=== PATIENT | male | born 1965 | race Caucasian/White ===

== ENCOUNTER 2018-03-25 16:21 | Emergency (ER) | payer OTHER ==
[~2018-03-25 16:21] MED LIST: AMPH20TA3 PO; HYDR-4068 PO; METO25 PO
[2018-03-25 18:43] LABS: BASOPHILS % (AUTO) 0.5 % (0.0-5.0); EOSINOPHILS % (AUTO) 6.1 % (0.0-8.0); HEMATOCRIT 25.7 % (42-54); LYMPHOCYTES % (AUTO) 19.1 % (21.0-51.0); MEAN CORPUSCULAR HEMOGLOBIN 28.5 pg (27.0-33.0); MEAN CORPUSCULAR HGB CONC 33.8 g/dL (32.0-36.0); MEAN CORPUSCULAR VOLUME 84.3 fL (79-99); NEUTROPHILS % (AUTO) 64.3 % (40.0-77.0); PLATELET COUNT (AUTO) 191 K/uL (130-400); RED BLOOD CELL COUNT(AUTO) 3.05 MIL/uL (4.50-6.20); RED CELL DISTRIBUTION WIDTH 16.3 % (11.0-15.5); WHITE BLOOD COUNT (AUTO) 2.4 K/uL (4.8-10.8)
[2018-03-25 18:54] LABS: CREATININE 0.8 mg/dL (0.5-1.5); POTASSIUM 3.5 mmol/L (3.5-5.1)
[2018-03-25 18:58] LABS: ALBUMIN 2.7 g/dL (3.5-5.0); BILIRUBIN,TOTAL 0.4 mg/dL (0.2-1.0); TOTAL PROTEIN, SERUM 6.5 g/dL (6.0-8.3)
[2018-03-25 19:16] LABS: BAND NEUTROPHILS % (MANUAL) 5 % (0-2); BASOPHILS % (MANUAL) 1 % (0-2); EOSINOPHILS % (MANUAL) 5 % (1-6); LYMPHOCYTES % (MANUAL) 15 % (22-44); MONOCYTES % (MANUAL) 8 % (2-9); REACTIVE LYMPHOCYTES 6 % (0-0); SEGMENTED NEUTROPHILS % 60 % (40-70)
[2018-03-25 19:17] LABS: MAN.DIFF COMMENT-IMPRESSION MANUAL DIFFERENTIAL
[2018-03-25 19:35] LABS: APPEARANCE,URINE Clear (CLEAR); BILIRUBIN,URINE Negative (NEGATIVE); COLOR,URINE Yellow (YELLOW); GLUCOSE, URINE (UA) Negative (NEGATIVE); KETONES,URINE Negative (NEGATIVE); LEUKOCYTE ESTERASE ,URINE Negative (NEGATIVE); NITRATE,URINE Negative (NEGATIVE); OCCULT BLOOD,URINE Negative (NEGATIVE); PROTEIN,URINE Negative (NEGATIVE); UROBILINOGEN,URINE 0.2 mg/dL (0.2-1.0)
== END 2018-03-25 20:12 | disposition home or self-care (01) ==
LOC: EDH 16:21
DX: I38 Endocarditis, valve unspecified (principal); R50.9 Fever, unspecified; M86.9 Osteomyelitis, unspecified; Z88.0 Allergy status to penicillin
CPT/HCPCS: 36415; 71046; 80053; 81003; 84153; 84154; 85025; 87040

== ENCOUNTER → 2018-06-22 | Outpatient (CLI) | payer OTHER | END | disposition home or self-care (01) | LOC: SHCH 08:41 | PROVIDERS: ATTEND Internal Medicine Cardiovascular Disease | DX: I51.7 Cardiomegaly (principal); I47.1 Supraventricular tachycardia | CPT/HCPCS: 93306 ==

== ENCOUNTER 2020-12-05 00:58 | Emergency (ER) | payer BC, OTHER ==
[~2020-12-05] VITALS: Ht 182.9 cm; Wt 108.0 kg
[2020-12-05 01:31] VITALS: BP 137/84
[2020-12-05 01:59] LABS: BASOPHILS % (AUTO) 1.2 % (0.0-5.0); EOSINOPHILS % (AUTO) 1.9 % (0.0-8.0); HEMATOCRIT 49.7 % (42-54); LYMPHOCYTES % (AUTO) 24.2 % (21.0-51.0); MEAN CORPUSCULAR HEMOGLOBIN 36.2 pg (27.0-33.0); MEAN CORPUSCULAR HGB CONC 35.2 g/dL (32.0-36.0); MEAN CORPUSCULAR VOLUME 102.9 fL (79-99); MONOCYTES % (AUTO) 8.3 % (3.0-13.0); PLATELET COUNT (AUTO) 203 K/uL (130-400); RED BLOOD CELL COUNT(AUTO) 4.83 MIL/uL (4.50-6.20); WHITE BLOOD COUNT (AUTO) 7.6 K/uL (4.8-10.8)
[2020-12-05] MEDS ORDERED: LIDOCAINE HCL 2% JELLY 5 ML ONE (02:08)
[2020-12-05 02:17] LABS: INR 0.94 (0.85-1.15); PROTHROMBIN TIME 10.3 SEC (9.6-11.6)
[2020-12-05 02:20] LABS: APPEARANCE,URINE Clear (CLEAR); BILIRUBIN,URINE Negative (NEGATIVE); COLOR,URINE Yellow (YELLOW); GLUCOSE, URINE (UA) Negative (NEGATIVE); KETONES,URINE 15 mg/dL (NEGATIVE); LEUKOCYTE ESTERASE ,URINE Negative (NEGATIVE); NITRATE,URINE Negative (NEGATIVE); OCCULT BLOOD,URINE Large (NEGATIVE); PH,URINE 5.5 (5.0-8.0); PROTEIN,URINE Negative (NEGATIVE); UROBILINOGEN,URINE 0.2 mg/dL (0.2-1.0)
[2020-12-05 02:21] LABS: B-TYPE NATRIURETIC PEPTIDE 59 pg/mL (0-100)
[2020-12-05 02:25] LABS: CREATININE 1.1 mg/dL (0.5-1.5); POTASSIUM 5.2 mmol/L (3.5-5.1)
[2020-12-05 02:30] LABS: ALBUMIN 3.7 g/dL (3.5-5.0); BILIRUBIN,TOTAL 0.5 mg/dL (0.2-1.0); TOTAL PROTEIN, SERUM 6.7 g/dL (6.0-8.3)
[2020-12-05 02:33] VITALS: BP 123/81
[2020-12-05 02:36] LABS: BACTERIA,URINE None Seen /HPF (None Seen); SQUAMOUS EPITHELIAL CELL,UR Rare /HPF (0-2); WBC,URINE None Seen /HPF (0-1)
== END 2020-12-05 02:50 | disposition home or self-care (01) ==
LOC: EDH 00:58
DX: I49.8 Other specified cardiac arrhythmias (principal); R00.2 Palpitations; I48.91 Unspecified atrial fibrillation; Z88.0 Allergy status to penicillin; Z79.899 Other long term (current) drug therapy; Z88.1 Allergy status to other antibiotic agents
CPT/HCPCS: 36415; 71045; 80053; 81001; 83880; 84484; 85025; 85610; 93005

== ENCOUNTER 2022-02-18 06:08 | Day surgery (SDC) | payer BC ==
[2022-02-14 13:59] LABS: BASOPHILS % (AUTO) 0.8 % (0.0-5.0); EOSINOPHILS % (AUTO) 1.5 % (0.0-8.0); LYMPHOCYTES % (AUTO) 21.6 % (21.0-51.0); MEAN CORPUSCULAR HEMOGLOBIN 33.3 pg (27.0-33.0); MEAN CORPUSCULAR HGB CONC 33.2 g/dL (32.0-36.0); MEAN CORPUSCULAR VOLUME 100.5 fL (79-99); MONOCYTES % (AUTO) 9.7 % (3.0-13.0); PLATELET COUNT (AUTO) 172 K/uL (130-400); RED BLOOD CELL COUNT(AUTO) 3.78 MIL/uL (4.50-6.20); RED CELL DISTRIBUTION WIDTH 13.8 % (11.0-15.5); WHITE BLOOD COUNT (AUTO) 4.7 K/uL (4.8-10.8)
[2022-02-14 14:10] LABS: INR 0.93 (0.85-1.15)
[2022-02-14 14:11] LABS: PARTIAL THROMBOPLASTIN TIME 29.4 SEC (26.3-35.5)
[2022-02-14 14:15] LABS: CREATININE 1.1 mg/dL (0.5-1.5); POTASSIUM 3.9 mmol/L (3.5-5.1)
[2022-02-17 10:37] VITALS: BP 169/98
[~2022-02-18] VITALS: Ht 185.4 cm; Wt 105.1 kg
[2022-02-18] VITALS (8 sets, daily range): BP systolic 112–119; BP diastolic 74–89
[~2022-02-18 06:08] MED LIST changes: +0.9%NACL 1000ML 1,000 ML IV SCH; -AMPH20TA3 PO; +APIX5TAB PO; -HYDR-4068 PO; -METO25 PO; +METO75TA PO; +PHARMACY COMMUNICATION MISC SCH; +RIFA300C34 PO; +SULF1TAB41 PO
[2022-02-18] MEDS ORDERED: LIDOCAINE HCL 1% 20 ML VIAL ONE (07:45)
[2022-02-18] MEDS ORDERED: HEPARIN 10,000 UNIT/10ML (1,000 UNIT/ML) VIAL ONE (07:45)
[2022-02-18] MEDS ORDERED: MEPERIDINE-PF 25 MG/ML SYG ONE ×4 (07:46→09:03)
[2022-02-18] MEDS ORDERED: MIDAZOLAM HCL 1 MG/ML 2ML VIAL ONE ×4 (07:46→09:03)
== END 2022-02-18 13:00 | disposition home or self-care (01) ==
LOC: DAH 06:08
PROVIDERS: ATTEND Internal Medicine Cardiovascular Disease
DX: I48.3 Typical atrial flutter (principal); I45.10 Unspecified right bundle-branch block; Z79.899 Other long term (current) drug therapy; Z79.01 Long term (current) use of anticoagulants; Z88.0 Allergy status to penicillin; Z79.82 Long term (current) use of aspirin; Z98.890 Other specified postprocedural states; Z85.51 Personal history of malignant neoplasm of bladder; Z87.891 Personal history of nicotine dependence; Z82.49 Family history of ischemic heart disease and other diseases of the circulatory system
CPT/HCPCS: 80048; 85025; 85610; 85730; 36415; 93005; 93653; C1894 ×2; A4649 ×2; C1732; C1730; J7030; J1644 ×2; J2250 ×4; J2175 ×4; A4222; A4221; A4663; A4216; A4606; A4223 ×3; 99156; 99157